=== PATIENT | male | born 1985 | race Caucasian/White ===

== ENCOUNTER 2021-01-17 18:53 | Emergency (ER) | payer OTHER ==
[2021-01-18 00:49] LABS: HEMOGLOBIN 17.3 gm/dl (14.0-17.5); RED BLOOD COUNT 5.41 M/UL (4.20-5.50); WHITE BLOOD COUNT 12.5 K/UL (4.5-11.0)
[2021-01-18 01:14] LABS: BUN/CREATININE RATIO 12 (0-10)
[2021-01-18] MEDS ORDERED: LISINOPRIL-HCT1 EAC1 PO (02:08)
== END 2021-01-18 02:30 | disposition home or self-care (01) ==
LOC: ER1 18:53
PROVIDERS: Physician Assistant
DX: I10 Essential (primary) hypertension (principal); R94.5 Abnormal results of liver function studies; F17.200 Nicotine dependence, unspecified, uncomplicated; Z79.899 Other long term (current) drug therapy
CPT/HCPCS: 70450; 80053; 82550; 82553; 83874; 84484; 85025; 93005; 99284

== ENCOUNTER 2021-11-12 13:48 | Emergency (ER) | payer SELFPAY ==
[~2021-11-12 13:48] MED LIST: LISINOPRIL-HCT1 EAC1 PO
== END 2021-11-12 15:03 | disposition home or self-care (01) ==
LOC: ER1 13:48
DX: S61.411A Laceration without foreign body of right hand, initial encounter (principal); I10 Essential (primary) hypertension; F17.200 Nicotine dependence, unspecified, uncomplicated; W45.8XXA Other foreign body or object entering through skin, initial encounter
CPT/HCPCS: 12002; 99283

== ENCOUNTER 2022-02-13 16:11 | Emergency (ER) | payer MEDICAID | END 2022-02-13 19:29 | disposition home or self-care (01) | LOC: ER1 16:11 | DX: U07.1 COVID-19 (principal); F17.210 Nicotine dependence, cigarettes, uncomplicated; I10 Essential (primary) hypertension | CPT/HCPCS: 0240U; 99283 ==

== ENCOUNTER 2022-02-17 16:30 | Emergency (ER) | payer OTHER ==
[2022-02-17] MEDS ORDERED: CORTIZONE-10 PL28 GM TP (18:26)
[2022-02-17] MEDS ORDERED: PREDNISONE 50 M50 MG PO (18:26)
== END 2022-02-17 18:42 | disposition home or self-care (01) ==
LOC: ER1 16:30
DX: U07.1 COVID-19 (principal); L23.7 Allergic contact dermatitis due to plants, except food; I10 Essential (primary) hypertension; F17.210 Nicotine dependence, cigarettes, uncomplicated
CPT/HCPCS: 81001; 96372; 99283; J1100

== ENCOUNTER → 2022-04-16 | Outpatient (CLI) | payer SELFPAY ==
[~2022-04-16] MED LIST changes: +CORTIZONE-10 PL28 GM TP; +PREDNISONE 50 M50 MG PO
[2022-04-16 15:19] LABS: BUN/CREATININE RATIO 17 (0-10)
== END ==
LOC: LAB 13:47
PROVIDERS: Nurse Practitioner Family
DX: Z13.220 Encounter for screening for lipoid disorders (principal); Z13.29 Encounter for screening for other suspected endocrine disorder; I10 Essential (primary) hypertension
CPT/HCPCS: 36415; 80053; 80061; 84439; 84443